=== PATIENT | male | born 1960 | race Caucasian/White ===

== ENCOUNTER 2017-05-01 20:23 | Emergency (ER) | payer OTHER ==
[2017-05-01 20:32] VITALS: BP 153/93; PULSE 73; TEMP 98.5; BMI 25.7
[2017-05-01] MEDS ORDERED: NAPROXEN 500 MG TABLET (FP) PO ONE (20:52)
[2017-05-01] MEDS ORDERED: NAPROXEN 500 MG TABLET (FP) ONE (21:01)
--- NOTE | 2017-05-01 21:04 | PDOC ---
Attending Attestation - Resident Resident Name: TruongAndrews - ED Attending Attestation I have performed the following: I have examined & evaluated the patient, The case was reviewed & discussed with the resident, I agree w/resident's findings & plan, Exceptions are as noted - HPI HPI: 05/01/17 21:12 56-year-old male with history of low testosterone, BPH presents to the ED for right biceps tendon rupture. The patient is left-hand dominant and has history of left biceps tendon rupture which was repaired many years ago. Today, patient was dancing with his when he felt his right biceps pop. Denies any trauma to the area. Denies numbness or weakness. - Physicial Exam PE: 05/01/17 21:17 GENERAL: Awake, alert, and fully oriented, in no acute distress. HEAD: No signs of trauma EYES: PERRLA, EOMI, sclera anicteric, conjunctiva clear ENT: Auricles normal inspection, hearing grossly normal, nares patent, oropharynx clear without exudates. EXTREMITIES: Normal range of motion, no edema. RUE: 2+ radial pulse. Sensation intact throughout. Median/Radian/Ulnar nerve sensation intact throughout. full strength. Obvious bicep tendon "bulge" RUE but FROM right elbow. NEUROLOGICAL: Cranial nerves II through XII grossly intact. Normal speech, normal gait SKIN: Warm, Dry, normal turgor, no rashes or lesions noted. - Medical Decision Making 05/01/17 21:19 This patient is likely with a by cyst tendon rupture. Conservative measures including NSAIDs, elevation and ice. We'll touch base with the patient's orthopedist. They are requesting Dr. Dyson's group. Likely outpatient management. 05/01/17 21:30 Case discussed with Kiel's group. They will see him next week as an outpatient. Pt and pt's informed and agrees with plan.
--- NOTE | 2017-05-01 21:44 | PDOC ---
History of Present Illness - General Chief Complaint: Pain Stated Complaint: PAIN Time Seen by Provider: 05/01/17 20:35 Exam Limitations: No Limitations - History of Present Illness Initial Comments: 05/01/17 21:09 56M with pmh of bph and on exogenous testosterone presents to the ED with a right bicep tendon rupture while dancing with his . He's not in any pain but complains warmth in the area and weakness. The patient reports a previous history of left bicep tendon rupture 15 years ago which was corrected surgically. Timing/Duration: 1-3 hours Past History - Past Medical History Allergies/Adverse Reactions: Allergies Allergy/AdvReac Type Severity Reaction Status Date / Time No Known Drug Allergies Allergy Verified 05/01/17 20:57 cat dander Allergy Uncoded 05/01/17 20:26 Home Medications: Ambulatory Orders Aspirin [Aspir 81] 81 mg PO DAILY 05/15/15 Tamsulosin HCl 0.4 mg PO DAILY 05/15/15 Azelastine HCl 137 mcg NS 02/26/17 Other medical history: BPH - Immunization History Immunization Up to Date: Yes - Psycho/Social/Smoking Cessation Hx Suicidal Ideation: No Smoking History: Never smoked Information on smoking cessation initiated: No Hx Alcohol Use: No Drug/Substance Use Hx: No Substance Use Type: None Review of Systems - Review of Systems Constitutional: No: Symptoms Reported HEENTM: No: Symptoms Reported Respiratory: No: Symptoms reported Cardiac (ROS): No: Symptoms Reported ABD/GI: No: Symptoms Reported : No: Symptoms Reported Musculoskeletal: Yes: See HPI, Muscle Weakness Integumentary: No: Symptoms Reported Neurological: No: Symptoms reported *Physical Exam - Vital Signs Last Vital Signs Temp Pulse Resp BP Pulse Ox 98.5 F 73 16 153/93 97 05/01/17 20:26 05/01/17 20:26 05/01/17 20:26 05/01/17 20:26 05/01/17 20:26 - Physical Exam General Appearance: Yes: Nourished, Appropriately Dressed. No: Apparent Distress, Intoxicated HEENT: positive: EOMI, MIRELA, Normal ENT Inspection, Normal Voice Respiratory/Chest: positive: Lungs Clear, Normal Breath Sounds. negative: Chest Tender, Respiratory Distress Cardiovascular: positive: Regular Rhythm, Regular Rate, S1, S2 Gastrointestinal/Abdominal: positive: Normal Bowel Sounds Musculoskeletal: negative: Decreased Range of Motion (right sided weakness on bicep flexion) Extremity: negative: Coldness, Cyanosis, Swelling, Erythema, Inflammation Medical Decision Making - Medical Decision Making 05/01/17 21:47 56m presents with R bicep tendon rupture. Patient given 500mg Naproxen for comfort. Discussed case with PA at Dr. Persaud' s office who advised that the patient calls the office on Thursday to schedule a visit + surgery. *DC/Admit/Observation/Transfer Diagnosis at time of Disposition: Nontraumatic rupture of long head of biceps tendon - Discharge Dispostion Disposition: HOME Condition at time of disposition: Good Admit: No
== END 2017-05-01 21:56 | disposition home or self-care (01) ==
LOC: JER 20:23
DX: S46.111A Strain of muscle, fascia and tendon of long head of biceps, right arm, initial encounter (principal); X58.XXXA Exposure to other specified factors, initial encounter; Y93.9 Activity, unspecified; Y92.9 Unspecified place or not applicable; N40.0 Benign prostatic hyperplasia without lower urinary tract symptoms
CPT/HCPCS: 99282-25

== ENCOUNTER 2017-05-12 05:13 | Day surgery (SDC) | payer OTHER ==
[2017-05-05 13:50] VITALS: BMI 25.7
[2017-05-12] MEDS ORDERED: LIDOCAINE HCL 1%, 10 MG/ML (20ML VIAL) ONE (14:27)
[2017-05-12] MEDS ORDERED: BUPIVACAINE HCL/PF 0.25% (2.5MG/ML) 10 ML VIAL ONE (14:27)
[2017-05-12] MEDS ORDERED: oxyCODONE HCL 5 MG TABLET PO PRN (14:35)
[2017-05-12] MEDS ORDERED: PROMETHAZINE HCL 25 MG/1 ML VIAL IVPUSH PRN (14:35)
[2017-05-12] MEDS ORDERED: ONDANSETRON 4 MG/2 ML VIAL IVPUSH PRN (14:35)
[2017-05-12] MEDS ORDERED: MIDAZOLAM HCL 2 MG/2 ML SINGLE DOSE VIAL ONE (14:51)
[2017-05-12] MEDS ORDERED: PROPOFOL 20 ML ONE (14:56)
--- NOTE | 2017-05-12 17:08 | OP ---
Operative Note - Note: Operative Date: 05/12/17 Pre-Operative Diagnosis: right distal biceps tendon rupture Operation: right distal biceps tendon repair Implants: fiber wire Post-Operative Diagnosis: Same as Pre-op Surgeon: Magdaleno Alfaro Anesthesiologist/ALL ROUND LOGGER: Mera Stiles MD Anesthesia: General Estimated Blood Loss (mls): 0 Drains, Volume Out (mls): 0 Blood Volume Replaced (mls): 0 Fluid Volume Replaced (mls): 1,000 Operative Report Dictated: Yes
--- NOTE | 2017-05-12 17:16 | HP ---
[facility] - Chief Complaint Chief Complaint: right elbow pain History of Present Illness: right elbow pain after lifting heavy object History Source: Patient Limitations to Obtaining History: No Limitations - Past Medical History Allergies/Adverse Reactions: Allergies Allergy/AdvReac Type Severity Reaction Status Date / Time No Known Drug Allergies Allergy Verified 05/01/17 20:57 cat dander Allergy Uncoded 05/01/17 20:26 - Current Medications Current Medications: Home Medications Medication Instructions Recorded Tamsulosin HCl 0.4 mg PO HS 05/15/15 Aspirin [Aspirin EC] 81 mg PO DAILY 05/05/17 Hydrocodone/Acetaminophen [Vicodin 1 - 2 tab PO TID PRN #40 tablet 05/12/17 5-300 mg Tablet] MDD 6 Satellite Physical Exam - Physical Examination Vital Signs: Vital Signs Period Temp Pulse Resp BP Sys/Mcgrath Pulse Ox Last 24 Hr 98.2 F 64 18 125/79 98 General Appearance: Well Nourished ENT: Clear Lung: Clear to auscultation Heart: Regular rate & rhythm Breasts: Soft Abdomen: Soft Extremities: No edema Satellite Impression/Plan - Impression/Plan Impression: right distal biceps tendon rupture Operative Procedure: right distal biceps tendon repair Date to be Performed: 05/12/17
[2017-05-12] MEDS ORDERED: oxyCODONE HCL 5 MG TABLET ONE ×2 (18:26→19:02)
[2017-05-12 18:48] VITALS: TEMP 98.3
[2017-05-12 20:17] VITALS: BP 148/92; PULSE 68
--- NOTE | 2017-05-13 09:25 | OP ---
DATE OF OPERATION: 05/12/2017 PREOPERATIVE DIAGNOSIS: Right distal biceps tendon rupture. POSTOPERATIVE DIAGNOSIS: Right distal biceps tendon rupture. PROCEDURE: Right distal biceps tendon repair. SURGEON: Sylvain Urban MD END FINDER FORMING DEPARTMENT: None. ANESTHESIA: Mera Stiles MD, LMA anesthesia. BLOOD LOSS: None. BLOOD GIVEN: None. FLUID REPLACEMENT: 1000 mL. DRAINS: None. COMPLICATIONS: None. SPECIMEN: None. INDICATIONS: This patient is a 56-year-old male with a preoperative diagnosis of a right distal biceps tendon rupture. After understanding the potential risks, complications, alternatives, and benefits to surgery versus nonsurgical treatment, the patient elected to undergo the procedure. DESCRIPTION OF PROCEDURE: The patient was brought to the operating room. Peripheral IV place. IV sedation given. Then 1 g of IV Ancef was given. LMA anesthesia was induced. Right upper extremity tourniquet applied. He was prepped and draped in a sterile fashion, elevated, exsanguinated with Esmarch bandage used to exsanguinate the right arm and the right upper quadrant and the tourniquet inflated to 250 mmHg. A transverse incision was marked out within the volar antecubital fossa. An incision was made with a No. 15 scalpel blade. Subcutaneous hemostasis achieved with a bipolar cautery. Longitudinal dissection was done with Metzenbaum scissors. Great care was taken to preserve all crossing neurovascular structures. Medially, a posttraumatic hematoma was evacuated. I was able to follow the fluid up to the distal biceps tendon stump. Grabbed it with a Olga, brought it out through the incision and was able to mobilization the biceps tendon with my finger and a Marie elevator. It looked like it had plenty of length; therefore, I put in a 3 up and down locking whipstitches with FiberWire. Next, curved Kesha forceps was placed down through the distal biceps tendon sheath around the radius taking care not to touch the ulna. I tented the skin posteriorly. A marking pen was used to wes out a longitudinal incision along this pen, and a longitudinal incision was made with a No. 15 scalpel blade. Subcutaneous hemostasis was achieved with bipolar cautery. Dissection was done along the course of this Kehsa clamp with the Metzenbaum scissors. The fascia was opened carefully for later repair. Ahmadi retractors were placed into the wound as was a self-retaining Weitlaner retractor. I then was able to easily see the radial tuberosity as I pronated and supinated the forearm. A rongeur was used to take off the radial tuberosity bursa. I next used the clamps to pass the sutures from the anterior to the posterior wound, and there was plenty of tendon length. Therefore, attention was turned back to the anterior incision. It was copiously irrigated, washed out, and closed with 4-0 undyed Vicryl in a running subcuticular 4-0 Biosyn stitch. It was covered with Steri-Strips. Our attention was turned back to the posterior wound, and I used the oval bur to bur out a crater in the radial tuberosity and softened up any sharp edges. I then put the end of the biceps tendon stump next to the crater, and it seemed to fit quite nicely. I then used the 2.7-mm drill bit and made 2 holes in the top shelf of the radial tuberosity crater and using a shoulder suture passer passed 3 sutures through the distal and 3 sutures through the more proximal hole. I then brought the distal biceps tendon stump into the crater. It went in extremely well. With the forearm in neutral, I tied the FiberWires over the bone bridge 2:2 then 1:1 and then did insurance stitches. It all came together quite nicely. The tails were cut off. The area was copiously irrigated and washed out. The fascial layer was closed with 2-0 Vicryl sutures. Then 4-0 undyed Vicryl was used to close the dermal layer. Final skin reapproximation was done with a running subcuticular 4-0 Biosyn stitch. The area was then washed and dried and covered with Steri-Strips, 4x4s, Webril, and a 6-inch posterior splint. Ortho-Glass splint was applied wrapped with Bari bandages. Total tourniquet time was 86 minutes. There were no complications during the case. The patient tolerated the procedure well and was brought to the ambulatory recovery room in stable condition. SYLVAIN URBAN M.D. [id number]
== END 2017-05-12 20:00 | disposition home or self-care (01) ==
LOC: JASU-SURG 05:13
PROVIDERS: ATTEND Orthopaedic Surgery
PROC: 0LQ30ZZ Repair Right Upper Arm Tendon, Open Approach (ICD-10-PCS; principal; 2017-05-12 14:30)
DX: S46.211D Strain of muscle, fascia and tendon of other parts of biceps, right arm, subsequent encounter (principal); X58.XXXD Exposure to other specified factors, subsequent encounter
CPT/HCPCS: 94760

== ENCOUNTER 2020-08-29 04:14 | Day surgery (SDC) | payer OTHER ==
[2020-08-28 09:42] VITALS: BMI 25.4
[2020-08-29] MEDS ORDERED: ACETAMINOPHEN 1000 MG/100 ML VIAL (NON FORMULARY) IVPB ONE (09:57)
[2020-08-29] MEDS ORDERED: IBUPROFEN 800 MG/8 ML IJ IVPB SCH (10:00)
[2020-08-29] MEDS ORDERED: DEXTROSE 5%-0.45% SALINE 1,000 ML IV SCH (10:00)
[2020-08-29] MEDS ORDERED: ONDANSETRON 4 MG/2 ML VIAL ONE ×2 (10:25→12:40)
[2020-08-29] MEDS ORDERED: DEXAMETHASONE SOD PHOSPHATE 4 MG/1 ML VIAL ONE (10:25)
[2020-08-29] MEDS ORDERED: PROPOFOL 20 ML ONE (10:25)
[2020-08-29] MEDS ORDERED: MIDAZOLAM HCL 2 MG/2 ML SINGLE DOSE VIAL ONE (10:25)
[2020-08-29] MEDS ORDERED: LIDOCAINE HCL/PF 2% SDV 5ML VIAL ONE (10:25)
[2020-08-29] MEDS ORDERED: ceFAZolin SODIUM 1 GM VIAL ONE (10:52)
[2020-08-29] MEDS ORDERED: ceFAZolin SODIUM 1 GM VIAL IVPB ONE (10:52)
[2020-08-29] MEDS ORDERED: oxyCODONE HCL 5 MG TABLET PO PRN ×2 (11:07)
[2020-08-29] MEDS ORDERED: ONDANSETRON 4 MG/2 ML VIAL IVPUSH PRN (11:07)
[2020-08-29] MEDS ORDERED: LACTATED RINGERS SOLUTION 1,000 ML IV SCH (11:15)
[2020-08-29] MEDS ORDERED: ACETAMINOPHEN INJECTION 100 ML IVPB ONE (11:52)
[2020-08-29 13:08] VITALS: BP 153/94; PULSE 99; TEMP 97.4
== END 2020-08-29 13:40 | disposition home or self-care (01) ==
LOC: JASU-SURG 04:14
PROVIDERS: ATTEND Urology
PROC: 0T7D8DZ Dilation of Urethra with Intraluminal Device, Via Natural or Artificial Opening Endoscopic (ICD-10-PCS; principal; 2020-08-29 10:00)
DX: N40.1 Benign prostatic hyperplasia with lower urinary tract symptoms (principal); R35.1 Nocturia
CPT/HCPCS: C9740; L8699; 94760; J0131